=== PATIENT | female | born 1955 | race Caucasian/White ===

== ENCOUNTER 2021-06-09 11:21 | Inpatient (IN) | payer MEDICARE, MEDICAID ==
[~2021-06-09] VITALS: Ht 157.5 cm; Wt 45.4 kg
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
[2021-06-09 11:29] VITALS: BP 135/75
[2021-06-09] MEDS ORDERED: XANAX 0.5 MG0.5 M1 PO (11:44)
[2021-06-09] MEDS ORDERED: PERCOCET 5-3251 EACH PO (11:44)
[2021-06-09 11:47] LABS: URINE BILIRUBIN NEGATIVE (Negative); URINE BLOOD NEGATIVE (Negative); URINE CLARITY CLOUDY; URINE COLOR DARK YELLOW; URINE GLUCOSE-RANDOM NEGATIVE (Negative); URINE KETONES 2+ (Negative); URINE LEUKOCYTES-REFLEX 1+ (Negative); URINE NITRITE-REFLEX NEGATIVE (Negative); URINE PROTEIN NEGATIVE (Negative); URINE SPECIFIC GRAVITY 1.015 (1.005-1.030); URINE UROBILINOGEN 0.2 E.U./dl (0.2-1.0)
[2021-06-09 11:55] LABS: AMP/METHAMP Negative (Negative); BARBITURATES Negative (Negative); BENZODIAZEPINES POSITIVE (Negative); COCAINE Negative (Negative); METHADONE Negative (Negative); OPIATES Negative (Negative); PCP Negative (Negative); THC Negative (Negative)
[2021-06-09 12:07] LABS: HEMATOCRIT 40.7 % (37.0-47.0); HEMOGLOBIN 13.7 gm/dL (12.0-15.0); MCH 30.1 pg (26.0-34.0); MCHC 33.6 g/dL (28.0-37.0); MCV 89.7 fL (80.0-100.0); MPV 8.4 fl. (7.2-11.1); NUCLEATED RBCS 0 /100WBC; PLATELET COUNT* 430 thou/uL (150-400); RBC 4.54 mil/uL (4.20-5.00); RDW-CV 12.6 % (10.5-14.5); WBC 16.8 thou/uL (4.0-11.0)
[2021-06-09 12:08] LABS: BACTERIA-REFLEX >30 Many /HPF (None Seen); SQUAMOUS 0-3 Few /LPF (0-3)
[2021-06-09 12:09] LABS: CASTS None Seen /LPF (None Seen); CRYSTALS None Seen /LPF (None Seen)
[2021-06-09 12:10] LABS: URINE RBC 0-2 Rare /HPF (0-2)
[2021-06-09 12:39] LABS: CALCIUM 8.9 mg/dL (8.5-10.1); CREATININE 1.2 mg/dL (0.6-1.3); POTASSIUM 3.4 mmol/L (3.5-5.1)
[2021-06-09 12:44] LABS: ALBUMIN 4.1 g/dL (3.4-5.0); ALCOHOL < 10 mg/dL (<10); CK-MB MASS 6.8 ng/mL (<0.5-3.6); SALICYLATE 7.3 mg/dL (2.8-20.0); TOTAL BILIRUBIN 0.8 mg/dL (<0.1-1.0); TOTAL PROTEIN 7.9 g/dL (6.4-8.2)
[2021-06-09 12:48] LABS: ACETAMINOPHEN < 2 ug/mL (10-30)
[2021-06-09 12:53] LABS: ABSOLUTE LYMPHOCYTES 0.7 thou/uL (0.8-5.3); ABSOLUTE MONOCYTES 0.7 thou/uL (0.0-1.2); ABSOLUTE NEUTROPHILS 15.5 thou/uL (1.6-8.1); METAMYELOCYTES 2 %; PLATELET ESTIMATE ADEQUATE
--- NOTE | 2021-06-09 14:44 | EKG ---
[place] [address] ELECTROCARDIOGRAM REPORT Name: STONEY PIPER Room: [address] [address] ADM IN [facility]#: [id number] Admission: 06/09/21 Attend Phys: Joselito Wills Discharge: Date of : 59 Date of Service: 06/09/21 1254 Report #: [id number] THIS REPORT FOR: //name// [facility] ED Test Date: 2021-06-09 Test Time: 12:54:49 Pat Name: STONEY VERONIQUE Department: Room: [facility] Gender: F Button Bradder: : 1955 Requested By: Bhupendra Damico Order Number: [id number] MD: Ramirez Britt Measurements Intervals [place]elow Rate: 90 P: 78 OK: 154 QRS: 73 QRSD: 99 T: 59 QT: 403 QTc: 493 Interpretive Statements Sinus rhythm LAE, consider biatrial enlargement Minimal ST depression, anterolateral leads Borderline prolonged QT interval No previous ECG available for comparison Electronically Signed On 06-09-2021 14:44:41 CDT by Ramirez Britt [email or web address] <ELECTRONICALLY SIGNED> By: Ramirez Britt MD, FACC 06/09/21 1444 1254 1254 Ramirez Britt MD, FACC /EPI
[2021-06-09 16:30] VITALS: BP 146/80
[2021-06-09 21:00] VITALS: BP 125/66
[2021-06-10] VITALS: BP 131/56
--- NOTE | 2021-06-10 02:49 | NUR ---
PT ADMITTED TO ROOM 228. PT CONFUSED. NONCOHERANT RAMBLING. PICKING AND PULLING AT TELEMETRY AND IV. PT STATED SHE WAS HUNGRY. WHEN GIVEN A SANDWHICH SHE DROPPED IT AND TRYED PUTTING THE BED SHEET IN HER MOUTH. LORAZEPAM GIVEN TWICE. SENIOR CARE SPECIALIST TRACING SR.
--- NOTE | 2021-06-10 03:22 | NUR ---
PT TRYING TO EAT NONFOOD ITEMS. ORDER OBTAINED FOR 1:1 SITTER.
[2021-06-10 08:00] VITALS: BP 127/62
[2021-06-10 08:47] LABS: CALCIUM 7.8 mg/dL (8.5-10.1); CREATININE 0.7 mg/dL (0.6-1.3); MAGNESIUM 2.2 mg/dL (1.8-2.4); PHOSPHORUS* 2.5 mg/dL (2.5-4.9)
[2021-06-10 08:52] LABS: POTASSIUM 2.9 mmol/L (3.5-5.1)
--- NOTE | 2021-06-10 09:01 | NUR ---
CRITICAL POTASSIUM RECEIVED FROM LAB. DR FITZPATRICK NOTIFIED AT THIS TIME. REPLACING PER PROTOCOL
[2021-06-10 12:31] VITALS: BP 129/71
[2021-06-10 15:15] LABS: POTASSIUM 4.6 mmol/L (3.5-5.1)
[2021-06-10 15:16] VITALS: BP 121/61
--- NOTE | 2021-06-10 15:28 | NUR ---
CM ASSESSMENT: PT RESTING WITH EYES CLOSED DURING ASSESSMENT. RN INFORMS THAT PT IS CONFUSED. PT HAS 1:1 SITTER AT THE BEDSIDE. CM SPOKE TO PT'S SON JASSON AND HE INFORMS THAT THE PT NORMALLY RESIDES AT HOME ALONE. PT USES 0 DME. PT HAS 0 HX OF HH OR SNF. PT HAS EXTENSIVE MENTAL HEALTH HX (30 YEARS OF MULTIPLE ADMISSIONS TO INPT PSYCH D/T SI, OR AMS) AND MOST RECENTLY HAD BEEN ADMITTED TO [facility] 4 MONTHS AGO. PER PT'S SON PT HAS HX OF PARANOIA, DEPRESSION, AND ANXIETY. CM WILL REMAIN AVAILABLE TO ASSIST WITH CM D/C PLANNING NEEDED.
--- NOTE | 2021-06-10 16:27 | NUR ---
PTS LIEN SPAULDING AVAILABLE AT [phone]
--- NOTE | 2021-06-10 19:33 | NUR ---
WHEN PT WAKES UP, SHE IS OFTEN YELLING. PT WAS ALERT TO SELF AND YEAR THROUGHOT DAY. PTS SON CALLED TO TALK WITH HER SEVERAL TIMES, STATED PT HAS NOT BEEN EATING MUCH AT HOME AND 'SHE GETS LIKE THIS SOMETIMES WHEN SHE GOES THROUGH THESE EPISODES,' HOWEVER SON UNABLE TO ELABORATE ON THIS. PLAN CONTIBUE IVF, ABX, REORIENTATION.
[2021-06-10 20:00] VITALS: BP 101/58
[2021-06-11 04:49] LABS: CALCIUM 7.7 mg/dL (8.5-10.1); CREATININE 0.5 mg/dL (0.6-1.3)
[2021-06-11 05:37] LABS: POTASSIUM 3.6 mmol/L (3.5-5.1)
--- NOTE | 2021-06-11 06:31 | NUR ---
PATIENT SLEPT MOST OF THE NIGHT. IV FLUIDS CONTINUE TO INFUSE ORDERED. PATIENT WAS GIVEN ATIVAN ONCE THIS SHIFT. PATIENT REMAINS ON A 1:1 SITTER. WILL CONTINUE TO MONITOR.
[2021-06-11 08:49] VITALS: BP 151/60
[2021-06-11 11:45] VITALS: BP 138/72
--- NOTE | 2021-06-11 13:44 | NUR ---
PLAN OF CARE: PHYSICIAN INFORMS OF PLAN TO CONSULT TELE PSYCH, AND INPT [facility] AT [facility] PENDING TELE PSYCH RECOMMENDATIONS. CM WILL REMAIN AVAILABLE TO ASSIST AND FOLLOW NEEDED.
[2021-06-11] MEDS ORDERED: CEFDINIR300 MG PO (14:26)
--- NOTE | 2021-06-11 15:16 | NUR ---
psych recc inpt psych on d/c. Dr Wills notified at this time.
[2021-06-11 16:37] LABS: ABSOLUTE BASOPHILS 0.1 thou/uL (0.0-0.2); ABSOLUTE EOSINOPHILS 0.1 thou/uL (0.0-0.7); ABSOLUTE LYMPHOCYTES 1.6 thou/uL (0.8-5.3); ABSOLUTE MONOCYTES 0.9 thou/uL (0.0-1.2); ABSOLUTE NEUTROPHILS 7.9 thou/uL (1.6-8.1); BASOPHILS 0.8 %; EOSINOPHILS 0.6 %; HEMOGLOBIN 12.7 gm/dL (12.0-15.0); LYMPHOCYTES 15.3 %; MCH 30.2 pg (26.0-34.0); MCHC 33.4 g/dL (28.0-37.0); MCV 90.4 fL (80.0-100.0); MONOCYTES 8.3 %; MPV 8.2 fl. (7.2-11.1); NUCLEATED RBCS 0 /100WBC; PLATELET COUNT* 317 thou/uL (150-400); RDW-CV 12.7 % (10.5-14.5); WBC 10.5 thou/uL (4.0-11.0)
[2021-06-11 16:48] LABS: ALBUMIN 3.1 g/dL (3.4-5.0); CREATININE 0.6 mg/dL (0.6-1.3); POTASSIUM 3.3 mmol/L (3.5-5.1); TOTAL BILIRUBIN 0.2 mg/dL (<0.1-1.0); TOTAL PROTEIN 6.7 g/dL (6.4-8.2)
--- NOTE | 2021-06-11 18:58 | NUR ---
NOTIFIED VIA HOSPITALITY COORDINATOR PT WILL NEED COVID PCR SWAB FOR IN PT PSYCH ADMISSION. WILL NEED TO BE OBTAINED, SENT, AND PT WILL NEED TO BE TRANSFERRED TO COVID UNIT UNTIL RESULTS COME. PT SHOULD D/C TO IN PT PSYCH FROM THIS UNIT. ROOM 104 PER HOSPITALITY COORDINATOR.
[2021-06-11 20:00] VITALS: BP 161/87
[2021-06-12] VITALS: BP 145/75
--- NOTE | 2021-06-12 08:25 | NUR ---
RECEIVED REPORT FROM FRAME GATE MORTISER OPERATOR. PT TRANSFERRED TO RM 104. PT A&OX2. ANXIOUS. VSS. PHYSICAL ASSESSMENT COMPLETED AND CHARTED. PT ON RA. PT TRACING SR ON TELE. PT UPSTANDBY TO RESTROOM. WITH 1:1 SITTER FOR SAFETY. CALL LIGHT WITHIN REACH.
[2021-06-12 09:00] VITALS: BP 148/88
--- NOTE | 2021-06-12 15:17 | NUR ---
PLAN OF CARE: TELE PSYCH RECOMMENDING INPT PSYCH FOR PT. INPT PSYCH PLACEMENT PENDING WITH [facility]. ACCEPTANCE OF PT IS CURRENTLY PENDING NEGATIVE PCR RESULT. WHEN NEAGTIVE RESULT IS AVAILABLE PLEASE FAX TO [facility]. CM WILL REMAIN AVAILABLE TO ASSIST AND FOLLOW NEEDED. [facility] ([facility]) PHONE: [phone] FAX: [phone]
[2021-06-12 17:56] VITALS: BP 142/98
[2021-06-12 20:00] VITALS: BP 168/78
[2021-06-13] VITALS: BP 159/97
[2021-06-13 04:00] VITALS: BP 159/100
--- NOTE | 2021-06-13 07:52 | NUR ---
ASSUMED CARE OF PT AFTER REPORT AT 1930. PT A&OX2. VSS. PHYSICAL ASSESSMENT COMPLETED AND CHARTED. PT ON RA. PT TRACINGSR ON TELE. PT UPSTANDBY. PT WITH 1:1 SITTER FOR SAFETY. CALL LIGHT WITHIN REACH.
[2021-06-13 08:30] VITALS: BP 152/102
[2021-06-14] MEDS ORDERED: LIPITOR 10 MG10 M1 PO (01:36)
[2021-06-14] MEDS ORDERED: SPIRIVA18 MCG INH (02:24)
[2021-06-14] MEDS ORDERED: ZOCOR 10 MG TAB10 M1 PO (02:24)
[2021-06-14] MEDS ORDERED: NABUMETONE 500500 M2 PO (02:25)
[2021-06-14] MEDS ORDERED: VENTOLIN HFA 1818 GM INH (02:26)
== END 2021-06-13 10:05 | DRG 871 ==
LOC: M.ERS 11:21 → M.2W 12:37 → M.TBA-ER 12:37 → M.ORTHSURG 12:37 → M.2W 21:04 → M.ORTHSURG 06-11 20:18
PROVIDERS: Family Medicine; ADMIT Internal Medicine; ATTEND Internal Medicine
DX: A41.9 Sepsis, unspecified organism (principal); G92.8 Other toxic encephalopathy; N39.0 Urinary tract infection, site not specified; Z20.822 Contact with and (suspected) exposure to COVID-19; F17.210 Nicotine dependence, cigarettes, uncomplicated; E78.5 Hyperlipidemia, unspecified; E87.6 Hypokalemia; F41.9 Anxiety disorder, unspecified; E86.0 Dehydration; B96.89 Other specified bacterial agents as the cause of diseases classified elsewhere; F32.9 Major depressive disorder, single episode, unspecified; Z88.8 Allergy status to other drugs, medicaments and biological substances; Z28.21 Immunization not carried out because of patient refusal